=== PATIENT | male | born 1945 | race Caucasian/White ===

== ENCOUNTER → 2017-06-17 | Day surgery (SDC) | payer OTHER ==
[~2017-06-17] MED LIST: BUPIVACAINE 0.5% 10 ML SDV ONE; DEPO METHYLPREDNISOLONE 40 MG/ML SDV ONE
== END | disposition home or self-care (01) ==
LOC: FIMAGING 08:10
PROVIDERS: ATTEND Orthopaedic Surgery Sports Medicine
DX: M54.5 Low back pain (principal)
CPT/HCPCS: J1030

== ENCOUNTER → 2018-02-03 | Outpatient (CLI) | payer OTHER | LOC: CIMAGING 11:48 | PROVIDERS: ATTEND Family Medicine | DX: S72.112A Displaced fracture of greater trochanter of left femur, initial encounter for closed fracture (principal); M15.4 Erosive (osteo)arthritis | CPT/HCPCS: 73502-PO ==